=== PATIENT | female | born 1995 | race Caucasian/White ===

== ENCOUNTER 2023-08-17 00:40 | Inpatient (IN) | payer OTHER, SELFPAY ==
[2023-08-17] VITALS (336 sets, daily range): BP systolic 87–156; BP diastolic 45–122; PULSE 65–179; RESP 16; TEMP 36.4–37.7; O2SAT 70–100; BMI 32.5
[2023-08-17 01:30] LABS: Basophils Percent Auto 0.4 % (0.2-1.2); Eosinophils Absolute Auto 0.1 K/mm3 (0-0.3); Eosinophils Percent Auto 1.4 % (0-4.4); Hematocrit 35.9 % (37.0-47.0); Hemoglobin 12.4 g/dL (12.0-15.0); Immature Granulocyte Absolute 0.06 K/mm3 (0.00-0.031); Immature Granulocyte Percent A 0.6 % (0-0.5); Lymphocytes Absolute Auto 1.73 K/mm3 (0.9-3.2); Lymphocytes Percent Auto 18.2 % (18.3-44.2); Mean Corpuscular HGB Conc 34.5 g/dl (32-36); Mean Corpuscular Volume 92.5 fl (80-100); Mean Platelet Volume 9.8 fl (7.4-10.4); Monocytes Absolute Auto 0.8 K/mm3 (0.1-0.6); Monocytes Percent Auto 8.5 % (2.6-8.5); Neutrophils Absolute Auto 6.8 K/mm3 (1.3-6.7); Neutrophils Percent Auto 70.9 % (45.5-73.1); Platelet Count Result 200 k/mm3 (150-375); Red Blood Count 3.88 M/mm3 (4.2-5.4); Red Cell Distribution Width 12.3 % (11.5-14.5); White Blood Count 9.5 K/mm3 (4.5-10.0)
--- NOTE | 2023-08-17 01:32 | LDADM ---
This patient, Lorena Palacios, was admitted to Labor/Delivery/Recovery 106 on 08/17/23 at 00:40. Plans for labor, pain management and were discussed with patient. Patient/family oriented to hospital policies and general routines including ID bracelet, bed and alarms, visiting hours, pain management, procedures, bathroom and other care routines, personal items, smoking policy, room service/diet and guest tray routines, infant security routines, and visiting hours. Patient/Family are encouraged to report perceived risks to care and to ask questions if they do not understand what they are told or what they should do. See OBIX for further documentation.
[2023-08-17] MEDS: LACTATED RINGERS 1,000 ML 125 ML IV CONT ×3 (01:53→13:34)
[2023-08-17] MEDS: OXYTOCIN 30 UNITS/NS 500 ML 30 UNITS/500 ML BAG 6 UNITS IV CONT (01:53)
--- NOTE | 2023-08-17 03:04 | WPDANESEPPF ---
Anes - Initial Pre Proc Eval Procedure: Labor epidural Date/Time: 08/17/23 03:04 Surgeon: Mary Monsalve MD Pre Op Diagnosis: Labor pain Pre Op Diagnosis: Leaking Fluid Patient Data Age: 28 Gender: F Height: 1.52 m Weight: 75.75 kg Last Vital Signs Temp 36.9 C 08/17/23 00:48 Pulse 83 08/17/23 03:01 BP 124/78 08/17/23 03:01 Pulse Ox 93 08/17/23 03:03 O2 Del Method Room Air 08/17/23 01:31 Allergies Allergy/AdvReac Type Severity Reaction Status Date / Time No Known Allergies Allergy Verified 08/17/23 01:37 Home Medications Medication Instructions Recorded Confirmed Type docusate sodium 50 mg capsule 50 mg PO BID 08/03/23 08/17/23 History magnesium 500 mg tablet 15 mg PO DAILY 08/03/23 08/17/23 History prenat.vits,mary,evg-mttx-xnlas 1 tablet 08/03/23 History Laboratory Tests 08/17/23 01:07 WBC 9.5 K/mm3 (4.5-10.0) RBC 3.88 L M/mm3 (4.2-5.4) Hgb 12.4 g/dL (12.0-15.0) Hct 35.9 L % (37.0-47.0) MCV 92.5 fl (80-100) MCH 32.0 pg (26-34) MCHC 34.5 g/dl (32-36) RDW 12.3 % (11.5-14.5) Plt Count 200 k/mm3 (150-375) MPV 9.8 fl (7.4-10.4) Immature Gran % (Auto) 0.6 H % (0-0.5) Neut % (Auto) 70.9 % (45.5-73.1) Lymph % (Auto) 18.2 L % (18.3-44.2) Barren % (Auto) 8.5 % (2.6-8.5) Eos % (Auto) 1.4 % (0-4.4) Baso % (Auto) 0.4 % (0.2-1.2) Lymph # (Auto) 1.73 K/mm3 (0.9-3.2) Barren # (Auto) 0.8 H K/mm3 (0.1-0.6) Eos # (Auto) 0.1 K/mm3 (0-0.3) Baso # (Auto) 0.0 K/mm3 (0.0-0.1) Abs Immat Gran (auto) 0.06 H K/mm3 (0.00-0.031) Absolute Neuts (auto) 6.8 H K/mm3 (1.3-6.7) Absolute Nucleated RBC 0.0 K/mm3 (0.0-0.012) Nucleated RBC % 0.0 % (0.0-0.2) RPR Pending Patient hx anesthesia problems: none Family hx anesthesia problems: none Results Review: All pre-operative results and documents have been reviewed as part of the pre-operative evaluation. [facility] Family History Family History Other Patient denies significant medical history Social History Social History Smoking status: Never smoker Substance use: never Do You Feel Safe in your Home?: Yes Lack of Transportation: No Lack of Food: Never True Current Housing: I Have Housing Concerned About Future Housing: No Difficulty Paying Gas/Electric Bills: No Difficulty Paying for Meds: No Currently Unemployed: No Education: High School Diploma/GED Difficulty w/ Childcare or Family Care: No Spiritual care concerns: No Anes - Eval Final PreProcedure Day of Procedure 08/17/23 03:04 Patient weight: normal Heart: regular rate and rhythm Lungs: clear to auscultation Airway: Mallampati scale class II Neurological: alert and oriented ASA classification: II Results Review: All pre-operative results and documents have been reviewed as part of the pre-operative evaluation. Informed Consent: The patient's anesthetic plan and its attendant risks and benefits were discussed with the patient/family/POA. Questions were solicited and answers provided to the satisfaction of the patient/family/POA.
--- NOTE | 2023-08-17 03:24 | WPDANESEPN ---
Anes - Epidural Procedure Note Date/Time: 08/17/23 03:24 Consent: I have discussed with the patient/family/POA, the placement of an epidural catheter and the use of epidural narcotic/local anesthetic for labor analgesia and/or postoperative pain management, including associated potential risks, benefits, complications and side effects. I have discussed alternative methods of labor analgesia and/or postoperative pain management. The patient/family/POA, understand(s) and wish(es) to proceed with epidural narcotic/local anesthetic for labor analgesia and/or postoperative pain management. Time-Out: A pre-procedural Time-Out was completed immediately before starting the procedure and confirmed: Patient Identification, Site, Procedure, Patient Position and the Availability of Requisite Equipment. Clinical Indications: Labor pain Epidural Insertion Note Patient position: sitting Skin prep: chlorhexidine and sterile drape Needle: 18g Tuohy-Schliff Catheter: 20g Unstyleted Technique: Loss of resistance. Level of insertion: L3/4 Catheter skin sathya (cm): 10 Length in epidural space (cm): 5 Skin anesthesia: lidocaine 1% Test dose: 1.5% Lidocaine with [id number] Epi, negative for subarachnoid Inj and negative for intravascular Inj Time of test dose: 03:16 Observations: tolerated well Complications: none
--- NOTE | 2023-08-17 07:56 | WPDOBADMIT ---
Obstetrics - Admit Note Admission Note: record reviewed. No pertinent additions to the history and/or any subsequent changes in the physical findings that are not consistent with the expected course of the were found. Additions to the history and/or subsequent changes in the physical findings follow. None. Pt admitted after SROM, augment with pitocin, anticipate vaginal delivery
[2023-08-17] MEDS: ONDANSETRON INJ 4 MG/2 ML VIAL IV PUSH (08:08)
[2023-08-17] MEDS: LACTATED RINGERS 1,000 ML 999 ML IV CONT (11:09)
[2023-08-17] MEDS: miSOPROStol 200 MCG TABLET 1000 MCG (16:23)
--- NOTE | 2023-08-17 16:36 | PM.OBPRVD ---
OB - Vaginal Delivery Note Procedure Delivery date: 08/17/23 Delivery augmentation: Pitocin Delivery monitor: External FHT and External Uterine Route of delivery: Episiotomy description: Right Mediolateral Delivery repair: vicryl Specimen: No Quantitative Blood Loss (ml): 325 Anesthesia type: Epidural Disposition: Floor [place] Baby Date of : 08/17/23 Time of : 16:10 Weeks of gestation at delivery: 39 Infant gender: Male Weight (pounds): 7 Weight (ounces): 13 presentation: vertex position: Left Occiput Anterior Placenta delivery description: Spontaneous Cord Vessel Description: 3 Vessels score one minute: 8 score five minutes: 9 Narrative: mother and baby in stable condition
[2023-08-17] MEDS: OXYTOCIN 30 UNITS/NS 500 ML 30 UNITS/500 ML BAG 125 UNITS IV CONT (16:39)
[2023-08-17] MEDS: fentaNYL CITRATE INJ (*CRX) 100 MCG/2 ML VIAL IV PUSH (16:39)
[2023-08-17] MEDS: IBUPROFEN 600 MG TABLET PO (17:49)
[2023-08-17] MEDS: HYDROcodone/acetaminophen (*CRX) 5-325 MG TABLET 1 TAB PO (17:50)
[2023-08-17] MEDS: WITCH HAZEL 40 PADS 1 PAD TOPICAL (18:40)
[2023-08-17] MEDS: BENZOCAINE 20% AER SPR (*SP) 56 GM CAN 1 SPRAY TOPICAL (18:40)
[2023-08-18] MEDS: IBUPROFEN 600 MG TABLET PO ×2 (00:05→18:17)
[2023-08-18] MEDS: DIBUCAINE 1% OINTMENT 30 GM TUBE 1 APPLIC TOPICAL (00:05)
[2023-08-18] MEDS: ACETAMINOPHEN 325 MG TABLET 650 MG PO ×2 (04:09→12:16)
[2023-08-18 04:52] LABS: Hematocrit 29.5 % (37.0-47.0); Hemoglobin 10.2 g/dL (12.0-15.0)
[2023-08-18 07:53] VITALS: BP 123/81; PULSE 96; RESP 18; TEMP 36.4; O2SAT 97
--- NOTE | 2023-08-18 10:00 | PM.OBPNVD ---
OB - PN: Subj Subjective Date/time seen: 08/18/23 10:00 Interval history: pp day 1 doing well pain well managed breast feeding OB - PN: Obj Data Labs 08/18/23 04:05 Labs: Laboratory Results - last 24 hr 08/18/23 04:05 Hgb 10.2 L Hct 29.5 L OB - PN A/P Plan day: 1 Plan: routine care Time Spent With Patient Time: Total time spent is greater than 50% in coordination of care (as documented) at patient's floor/unit and/or counseling patient: Review of Systems Review of Systems: All systems reviewed & are unremarkable except as noted in HPI and below Exam Const: General: cooperative, healthy appearing and comfortable Chest: Chest palpation & inspection: normal inspection of the chest Resp: Effort & Inspection: normal respiratory effort GI: Inspection: normal to inspection Back/Spine/Pelvis: Back: no CVA tenderness Skin: General skin exam: normal color Extrem: Right lower extremity: normal to inspection Left lower extremity: normal to inspection
[2023-08-18] MEDS: DOCUSATE SODIUM 100 MG CAPSULE PO ×2 (12:16→20:19)
--- NOTE | 2023-08-18 12:51 | WPDANLDPN2 ---
Anes-Prog Note L&D Date/Time: 08/18/23 12:51 Comfortable throughout: labor and section Neuraxial method: epidural Epidural/Spinal procedure site: clean & non-tender Neuro status: Neuro function grossly intact. Cardiovascular status: normal Respiratory status: normal Airway patency: baseline Mental status: baseline Post-Op hydration status: normal Vital Signs: Last Vital Signs Temp 97.6 F 08/18/23 07:53 Pulse 96 08/18/23 07:53 Resp 18 08/18/23 07:53 BP 123/81 08/18/23 07:53 Pulse Ox 97 08/18/23 07:53 O2 Del Method Room Air 08/18/23 07:53 Pain score (VAS): 3 I/O: Intake & Output 08/17/23 08/18/23 08/18/23 23:59 07:59 15:59 Output Total 852 Balance -852 Post-procedural complaints: none Patient feedback: Patient satisfied with anesthetic care. pt verbalized poor pain relief despite multiple additional boluses and catheter replacement.
[2023-08-18 20:05] VITALS: BP 117/81; PULSE 80; RESP 16; TEMP 37.3
--- NOTE | 2023-08-19 02:57 | PC.NURSE ---
08/18/23 at 2300. Patient viewed the discharge video Mother & Baby Care, The First Two Weeks . Patient was given the opportunity and encouraged to ask questions. Patient verbalized understanding of information shared and has been given the mother/baby guide for home reference.
--- NOTE | 2023-08-19 03:35 | PM.OBPNVD ---
OB - PN: Subj Subjective Date/time seen: 08/19/23 03:35 Interval history: pp day 2 doing well pain well managed breast feeding OB - PN: Obj Data Labs 08/18/23 04:05 Labs: Laboratory Results - last 24 hr 08/18/23 04:05 Hgb 10.2 L Hct 29.5 L OB - PN A/P Plan day: 2 Plan: routine care and discharge home Time Spent With Patient Time: Total time spent is greater than 50% in coordination of care (as documented) at patient's floor/unit and/or counseling patient: Review of Systems Review of Systems: All systems reviewed & are unremarkable except as noted in HPI and below Exam Const: General: cooperative, healthy appearing and comfortable Resp: Effort & Inspection: normal respiratory effort GI: Inspection: normal to inspection Skin: General skin exam: normal color Neuro: General: patient oriented x3 Extrem: Right lower extremity: normal to inspection Left lower extremity: normal to inspection Psych: Appearance: grossly normal
--- NOTE | 2023-08-19 03:37 | P.DS_ITS ---
DS: Admitting Diagnosis Discharge Date 08/19/23 Admitting Diagnosis srom DS: Discharge Diagnosis Discharge Diagnosis (1) Vaginal delivery: Code(s): O80 - Encounter for full-term uncomplicated delivery Status: Acute OB - DS: Summary OB Procedures : None OB Procedures Intrapartum: Spontaneous Vag Delivery OB Procedures: : None Peripartum Data Episiotomy description: Right Mediolateral Time Spent with Patient Time attestation: Total time spent providing and/or coordinating discharge services: DS: Data Data Completed and Pending Labs on day of discharge: Labs from last 24 hours 08/18/23 04:05 Hgb 10.2 L Hct 29.5 L Discharge Plan Discharge Attending physician on discharge: Mary Monsalve Discharging Clinician: Cat Lange Patient Disposition: Home, Self-Care Activity: pelvic rest Diet: regular Patient Instructions: Antibiotic Form Stand Alone Forms: General Discharge Information Follow-up/Referrals: Cat Lange, CNM [Certified Nurse Aluminum Siding Mechanic] - 4 Weeks Discharge Medications: New ibuprofen 600 mg Tablet 600 mg PO Q6H PRN (Reason: Cramping) Qty: 30 0RF Continued magnesium 500 mg Tablet 15 mg PO DAILY Colace 50 mg Capsule 50 mg PO BID #2 Tablet 1 tablet Date of admission: 08/17/23 00:40 Primary Care Provider: PHYSICIAN,OPERATIONS SUPERVISOR Admitting Provider: Mary Monsalve Attending physician on admission: Mary Monsalve Condition: Stable
[2023-08-19 07:30] VITALS: BP 129/77; PULSE 81; RESP 16; TEMP 36.9; O2SAT 98
[2023-08-19] MEDS: IBUPROFEN 600 MG TABLET PO (08:26)
[2023-08-19] MEDS: DOCUSATE SODIUM 100 MG CAPSULE PO (08:26)
[2023-08-20 10:33] LABS: Rapid Plasma Reagin Non-Reactive (NonReactive)
[2023-08-21 11:12] VITALS: BP 133/88; PULSE 98; RESP 18; TEMP 37; O2SAT 100
== END 2023-08-19 12:40 | disposition home or self-care (01) | DRG 807 ==
LOC: ANHLDR 01:04 → ANHOB2 19:06
PROVIDERS: Advanced Practice Midwife; Admitting Provider Obstetrics & Gynecology; Visit Provider Obstetrics & Gynecology
DX: O80 Encounter for full-term uncomplicated delivery (principal); Z37.0 Single live birth; Z3A.39 39 weeks gestation of pregnancy
CPT/HCPCS: 36415; 85014; 85018; 85025; 86592; 86850; 86900; 86901; A9270; J2405; J2590; J2795; J3010; J7120